=== PATIENT | male | born 1965 ===

== ENCOUNTER 2021-09-22 09:58 | Inpatient (IN) ==
[2021-09-22] MEDS ORDERED: ASPIRIN 325 MG TABLET PO STA (10:17)
[2021-09-22] MEDS ORDERED: ASPIRIN 325 MG TABLET ONE (10:17)
[2021-09-22] MEDS ORDERED: TICAGRELOR 90 MG TABLET PO STA (10:17)
[2021-09-22] MEDS ORDERED: ASPIRIN CHEW 81 MG TABLET PO ONE (10:19)
[2021-09-22 10:25] LABS: Basophils % 0.5 % (0.0-0.8); Eosinophils # 0.2 10*3/uL (0.0-0.87); Eosinophils % 2.2 % (0.00-10.9); Hematocrit 46.6 VOL% (42.0-52.0); Hemoglobin 15.4 GM/DL (14.0-18.0); Immature Granulocytes % 0.5 %; Immature Granulocytes Absolute 0.04 #; Lymphocytes # 2.5 10*3/uL (1.4-4.0); Lymphocytes % 28.6 % (21.2-54.2); Mean Corpuscular Volume 84.3 FL (87-102); Mean Platelet Volume 11.3 FL (9.6-12.0); Monocytes % 6.2 % (1.7-12.7); Platelet Count 241 T/CUMM (130-400); Red Blood Count 5.53 MC/CUMM (3.8-5.5); Red Cell Distribution Width 12.8 % (9.3-17.3); White Blood Count 8.7 T/CUMM (4-12)
[2021-09-22] MEDS ORDERED: LABETALOL 20 MG/4 ML SYRINGE IV STA (10:31)
[2021-09-22] MEDS ORDERED: LABETALOL 20 MG/4 ML SYRINGE IV ONE ×2 (10:32→12:07)
[2021-09-22 10:36] LABS: PT Patient Result 11.1 SECS (10.5-12.0); Partial Thromboplastin Time 25.4 SECS (23.8-32.1)
[2021-09-22] MEDS ORDERED: MORPHINE 4 MG/1 ML VIAL ONE (10:47)
[2021-09-22] MEDS ORDERED: ONDANSETRON 4 MG/2 ML VIAL IV STA (10:47)
[2021-09-22] MEDS ORDERED: ONDANSETRON 4 MG/2 ML VIAL ONE (10:47)
[2021-09-22] MEDS ORDERED: MORPHINE 4 MG/1 ML VIAL IV STA (10:48)
[2021-09-22 11:07] LABS: Alanine Aminotransferase 37 U/L (16-61); Albumin 3.5 G/DL (3.4-5.0); Alkaline Phosphatase 89 U/L (45-117); Aspartate Amino Transferase 18 U/L (0-37); Bilirubin,Total < 0.39 MG/DL (0.20-1.00); Blood Urea Nitrogen 12 MG/DL (7-18); Carbon Dioxide 27 MMOL/L (21-32); Estimated Glom Filtration Rate 96 ML/MIN; Glucose 223 MG/DL (74-106); Osmolality,Calculated 281.7 MOS/KG (273-304); Sodium 138 MMOL/L (136-145)
[2021-09-22] MEDS ORDERED: MIDAZOLAM 2 MG/2 ML VIAL ONE (11:07)
[2021-09-22] MEDS ORDERED: HYDROmorphone 1 MG/1 ML SYRINGE ONE (11:08)
[2021-09-22] MEDS ORDERED: diphenhydrAMINE 50 MG/1 ML VIAL ONE (11:11)
[2021-09-22] MEDS ORDERED: HEPARIN/NACL 0.9% 2 UNITS/ML 2,000 UNIT/1,000 ML BAG IV ONE (11:14)
[2021-09-22] MEDS ORDERED: BIVALIRUDIN 250 MG VIAL IV ONE (11:16)
[2021-09-22] MEDS ORDERED: CALCIUM CARBONATE CHEW 500 MG TABLET PO PRN (11:24)
[2021-09-22] MEDS ORDERED: LACTULOSE 20 GM/30 ML UDCUP PO PRN (11:24)
[2021-09-22] MEDS ORDERED: ALUMINUM/MAGNES/SIMETH MAX STR 30 ML UDCUP PO PRN (11:24)
[2021-09-22] MEDS ORDERED: SIMETHICONE CHEW 125 MG TABLET PO PRN (11:24)
[2021-09-22] MEDS ORDERED: BISACODYL 5 MG TABLET PO PRN (11:24)
[2021-09-22] MEDS ORDERED: ACETAMINOPHEN 325 MG TABLET PO PRN (11:24)
[2021-09-22] MEDS ORDERED: ONDANSETRON 4 MG/2 ML VIAL IV PRN (11:24)
[2021-09-22] MEDS ORDERED: ZALEPLON 5 MG CAPSULE PO PRN (11:24)
[2021-09-22] MEDS ORDERED: MORPHINE 4 MG/1 ML VIAL IV PRN (11:24)
[2021-09-22] MEDS ORDERED: GLUCAGON 1 MG VIAL IM PRN (11:26)
[2021-09-22] MEDS ORDERED: NITROGLYCERIN DRIP 50 MG/250 ML BOTTLE IV ONE (11:29)
[2021-09-22] MEDS ORDERED: DEXTROSE 10% 250 ML BAG IV PRN (11:34)
[2021-09-22] MEDS ORDERED: NITROGLYCERIN SL 0.4 MG TABLET SL PRN (12:43)
[2021-09-22] MEDS ORDERED: SODIUM CHLORIDE 0.9% 1,000 ML IV SCH (13:00)
[2021-09-22] MEDS: INSULIN LISPRO 100 UNIT/ML SUBCUT SCH ×3 (13:57→20:40)
[2021-09-22] MEDS ORDERED: carvediloL 12.5 MG TABLET PO SCH (17:00)
[2021-09-22] MEDS: carvediloL 6.25 MG TABLET PO SCH (17:03)
[2021-09-22] MEDS: TICAGRELOR 90 MG TABLET PO SCH (20:39)
[2021-09-22] MEDS: ATORVASTATIN 40 MG TABLET PO SCH (20:39)
[2021-09-22] MEDS: SODIUM CHLORIDE 0.9% 1,000 ML IV SCH (22:04)
[2021-09-23] MEDS: hydrALAZINE 20 MG/1 ML VIAL IV PRN ×2 (02:06→13:16)
[2021-09-23 04:51] LABS: Basophils % 0.3 % (0.0-0.8); Eosinophils # 0.2 10*3/uL (0.0-0.87); Eosinophils % 1.4 % (0.00-10.9); Hematocrit 43.9 VOL% (42.0-52.0); Hemoglobin 14.4 GM/DL (14.0-18.0); Immature Granulocytes % 0.2 %; Immature Granulocytes Absolute 0.02 #; Lymphocytes # 1.2 10*3/uL (1.4-4.0); Lymphocytes % 11.5 % (21.2-54.2); Mean Corpuscular HGB Conc 32.8 GM/DL (32-36); Mean Corpuscular Volume 84.7 FL (87-102); Mean Platelet Volume 11.3 FL (9.6-12.0); Monocytes % 5.7 % (1.7-12.7); Neutrophils % 80.9 % (38.7-73.9); Platelet Count 221 T/CUMM (130-400); Red Blood Count 5.18 MC/CUMM (3.8-5.5); Red Cell Distribution Width 12.9 % (9.3-17.3); White Blood Count 10.8 T/CUMM (4-12)
[2021-09-23 05:18] LABS: Calcium 8.6 MG/DL (8.5-10.1); Osmolality,Calculated 277.7 MOS/KG (273-304); Potassium 3.7 MMOL/L (3.5-5.1); Risk Ratio 3.1; Thyroid Stimulating Hormone 0.641 uIU/ml (0.358-3.74); VLDL Cholesterol 17.2 MG/DL
[2021-09-23] MEDS: SODIUM CHLORIDE 0.9% 1,000 ML IV SCH (05:39)
[2021-09-23] MEDS ORDERED: MAGNESIUM SULF RIDER 4 GM/100 ML PREMIX IV ONE (08:15)
[2021-09-23] MEDS: INSULIN LISPRO 100 UNIT/ML SUBCUT SCH ×4 (08:19→20:13)
[2021-09-23] MEDS: PANTOPRAZOLE 40 MG TABLET PO SCH (08:20)
[2021-09-23] MEDS: ASPIRIN EC 81 MG TABLET PO SCH (08:20)
[2021-09-23] MEDS: carvediloL 6.25 MG TABLET PO SCH ×2 (08:20→16:32)
[2021-09-23] MEDS: TICAGRELOR 90 MG TABLET PO SCH ×2 (08:20→20:13)
[2021-09-23] MEDS ORDERED: lisinopriL 5 MG TABLET PO SCH (09:00)
[2021-09-23] MEDS ORDERED: ENOXAPARIN 40 MG/0.4 ML SYRINGE SUBCUT SCH (09:00)
[2021-09-23] MEDS ORDERED: lisinopriL 20 MG TABLET PO SCH (11:30)
[2021-09-23] MEDS: ATORVASTATIN 40 MG TABLET PO SCH (20:12)
[2021-09-24 06:31] LABS: Basophils % 0.3 % (0.0-0.8); Eosinophils # 0.3 10*3/uL (0.0-0.87); Eosinophils % 2.6 % (0.00-10.9); Hematocrit 46.8 VOL% (42.0-52.0); Hemoglobin 15.5 GM/DL (14.0-18.0); Immature Granulocytes % 0.3 %; Immature Granulocytes Absolute 0.03 #; Lymphocytes # 2.5 10*3/uL (1.4-4.0); Lymphocytes % 22.4 % (21.2-54.2); Mean Corpuscular HGB Conc 33.1 GM/DL (32-36); Mean Corpuscular Volume 85.1 FL (87-102); Monocytes % 7.2 % (1.7-12.7); Neutrophils % 67.2 % (38.7-73.9); Platelet Count 243 T/CUMM (130-400); Red Cell Distribution Width 13.3 % (9.3-17.3)
[2021-09-24 06:41] LABS: Calcium 8.7 MG/DL (8.5-10.1); Osmolality,Calculated 276.7 MOS/KG (273-304); Potassium 3.8 MMOL/L (3.5-5.1)
[2021-09-24] MEDS: ASPIRIN EC 81 MG TABLET PO SCH (08:27)
[2021-09-24] MEDS: TICAGRELOR 90 MG TABLET PO SCH (08:28)
[2021-09-24] MEDS: carvediloL 6.25 MG TABLET PO SCH (08:28)
[2021-09-24] MEDS: PANTOPRAZOLE 40 MG TABLET PO SCH (08:28)
[2021-09-24] MEDS ORDERED: lisinopriL 20 MG TABLET PO SCH ×2 (09:00→11:30)
[2021-09-24] MEDS: INSULIN LISPRO 100 UNIT/ML SUBCUT SCH (09:07)
[2021-09-24 09:59] VITALS: BP 125/86
== END 2021-09-24 11:33 | disposition home or self-care (01) | DRG 247 ==
LOC: N.ED 09:58 → N.CC 10:55 → N.EDINP 11:06 → N.CC 12:17 → N.TELEN 09-24 09:32
PROVIDERS: ADMIT Internal Medicine Cardiovascular Disease; ATTEND Internal Medicine Cardiovascular Disease
PROC: CLCCHCL (ICD-10-PCS; 2021-09-22 11:30)